=== PATIENT | female | born 1975 | race Caucasian/White ===

== ENCOUNTER 2017-06-26 17:04 | Emergency (ER) | payer BC ==
[2017-06-26 18:10] LABS: ADD MAN DIFF? NO
[2017-06-26] MEDS: IV NORMAL SALINE 1000ML BAG 1,000 ML IV (18:10)
[2017-06-26] MEDS: ONDANSETRON PF 4 MG/2 ML VIAL. IV (18:11)
[2017-06-26] MEDS: KETOROLAC 30 MG/ML INJ. IV (18:11)
[2017-06-26 18:14] LABS: BASO % 1 % (0-3); EOS % 0 % (0-3); HEMATOCRIT 36.3 % (36.0-47.0); HEMOGLOBIN 12.9 g/dL (12.0-15.5); LYMPH # 1.5 x10^3/uL (1.0-4.8); LYMPH % 21 % (24-48); MEAN CORPUSCULAR HEMOGLOBIN 34 pg (25-35); MEAN CORPUSCULAR HGB CONC 36 g/dL (31-37); MEAN CORPUSCULAR VOLUME 96 fL (79-100); MONO # 0.7 x10^3/uL (0.0-1.1); MONO % 9 % (0-9); NEUT # 5.1 x10^3uL (1.8-7.7); NEUT % 69 % (31-73); PLATELET COUNT 148 x10^3/uL (140-400); RED BLOOD COUNT 3.77 x10^6/uL (3.50-5.40); RED CELL DISTRIBUTION WIDTH 15.2 % (11.5-14.5); WHITE BLOOD COUNT 7.4 x10^3/uL (4.0-11.0)
[2017-06-26 18:34] LABS: ALBUMIN 3.7 g/dL (3.4-5.0); ALBUMIN/GLOBULIN RATIO 0.9 (1.0-1.7); ALK PHOS 99 U/L (46-116); ALT (SGPT) 75 U/L (14-59); ANION GAP 12 (6-14); AST (SGOT) 94 U/L (15-37); BLOOD UREA NITROGEN 11 mg/dL (7-20); BUN/CREATININE RATIO 16 (6-20); CALCIUM 8.5 mg/dL (8.5-10.1); CARBON DIOXIDE 29 mmol/L (21-32); CHLORIDE 98 mmol/L (98-107); CREATININE 0.7 mg/dL (0.6-1.0); GFR 92.2; GLUCOSE 97 mg/dL (70-99); LIPASE 258 U/L (73-393); SODIUM 139 mmol/L (136-145); TOTAL BILIRUBIN 0.6 mg/dL (0.2-1.0); TOTAL PROTEIN 7.9 g/dL (6.4-8.2)
[2017-06-26 18:39] LABS: ETHANOL 374 mg/dL (0-10)
[2017-06-26 18:40] LABS: POTASSIUM 2.9 mmol/L (3.5-5.1)
[2017-06-26 20:14] LABS: BILIRUBIN,URINE NEGATIVE (NEG); CLARITY,URINE CLEAR; COLOR,URINE YELLOW; GLUCOSE,URINE NEGATIVE (NEG); NITRITE,URINE NEGATIVE (NEG); PROTEIN,URINE NEGATIVE (NEG-TRACE)
[2017-06-26 20:19] LABS: BARBITURATES NEG (NEG); BENZODIAZEPINES NEG (NEG); CANNABINOIDS NEG (NEG); COCAINE NEG (NEG); METHADONE NEG (NEG); OPIATES NEG (NEG); PHENCYCLIDINE NEG (NEG)
[2017-06-26 20:21] LABS: AMPHETAMINE/METHAMPHETAMINE NEG (NEG); BACTERIA,URINE FEW /HPF (0-FEW); ETHANOL, URINE POS (NEG); SQUAMOUS EPITHELIAL CELL,UR MANY /LPF; WBC,URINE OCC /HPF (0-4)
[2017-06-26 20:22] LABS: HYALINE CASTS, URINE FEW /HPF
[2017-06-26] MEDS: POTASSIUM CHLORIDE 20 MEQ TABLET.ER. PO (20:48)
== END 2017-06-26 20:58 | disposition home or self-care (01) ==
LOC: ER 17:04
DX: R10.11 Right upper quadrant pain (principal); R10.13 Epigastric pain; R10.30 Lower abdominal pain, unspecified; E87.6 Hypokalemia; F10.10 Alcohol abuse, uncomplicated; R11.0 Nausea; N93.9 Abnormal uterine and vaginal bleeding, unspecified; I10 Essential (primary) hypertension; Y90.8 Blood alcohol level of 240 mg/100 ml or more
CPT/HCPCS: 36415; 76705; 76856; 80053; 80307; 81001; 83690; 85025; 87086; 96361; 96374; 96375; 99285-25; G0480; J1885; J2405; J7030

== ENCOUNTER 2018-09-23 18:22 | Emergency (ER) | payer SELFPAY ==
[~2018-09-23] VITALS: Ht 160 cm; Wt 68.0 kg
[~2018-09-23 18:22] MED LIST: POTA20TA82 PO
[2018-09-23 19:02] LABS: BASO % 0 % (0-3); EOS % 0 % (0-3); HEMATOCRIT 43.3 % (36.0-47.0); HEMOGLOBIN 15.4 g/dL (12.0-15.5); LYMPH # 1.8 x10^3/uL (1.0-4.8); LYMPH % 21 % (24-48); MEAN CORPUSCULAR HEMOGLOBIN 32 pg (25-35); MEAN CORPUSCULAR HGB CONC 36 g/dL (31-37); MEAN CORPUSCULAR VOLUME 89 fL (79-100); MONO # 0.5 x10^3/uL (0.0-1.1); MONO % 6 % (0-9); NEUT # 6.1 x10^3uL (1.8-7.7); NEUT % 72 % (31-73); PLATELET COUNT 127 x10^3/uL (140-400); RED BLOOD COUNT 4.88 x10^6/uL (3.50-5.40); RED CELL DISTRIBUTION WIDTH 14.4 % (11.5-14.5); WHITE BLOOD COUNT 8.4 x10^3/uL (4.0-11.0)
[2018-09-23 19:15] VITALS: BP 138/92
[2018-09-23 19:20] LABS: CALCIUM 8.7 mg/dL (8.5-10.1); CREATININE 0.5 mg/dL (0.6-1.0); GFR 135.3; POTASSIUM 3.5 mmol/L (3.5-5.1)
--- NOTE | 2018-09-23 19:20 | PHYS DOC ---
Past Medical History Past Medical History: Hypertension Past Surgical History: No Surgical History Alcohol Use: Heavy Drug Use: None Adult General Chief Complaint Chief Complaint: SUICDAL IDEATION HPI HPI Patient is a 42 year old female who presents via EMS for suicidal ideations. Per EMS report patient had significant EtOH intake today and made suicidal statements to neighborhood expressed concerns of the patient is suicidal. 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 On my evaluation patient is obviously acutely intoxicated. She has a mildly unsteady gait with some mild slurred speech. She has grossly dilated pupils that are sluggishly responsive to light. She was initially agitated and stating that she was going home and recanting SI statements. Patient does report that her spouse 2 days ago. Given acute intoxicated state and previous SI statements just 5 minutes prior to my evaluation patient will be UNTIL she is clinically sober and able to participate in a conversation with the PAT team. She was not a willing historian on my evaluation. Review of Systems Review of Systems She was not cooperative for ROS evaluation. Allergies Allergies Allergies Coded Allergies Type Severity Reaction Last Updated Verified No Known Drug Allergies 06/26/17 No Physical Exam Physical Exam Constitutional: Well developed, well nourished, appears stated age, slightly unsteady gait, slightly slurred speech, appears acutely intoxicated HENT: Normocephalic, atraumatic, Eyes: Pupils are approximately 6-7 mm was slightly sluggish reaction to light. She has spontaneous full ocular muscle use but does not cooperate for detailed exam. Neck: no stridor. Trachea midline[] Cardiovascular:Heart rate regular rhythm, no murmur [] Lungs & Thorax: Bilateral breath sounds clear to auscultation [] Abdomen: Bowel sounds normal, soft, no tenderness, no masses, no pulsatile masses. [] Skin: Warm, dry, no erythema, no rash, no excessive bruising to extremities or torso.. [] Back: No tenderness, no CVA tenderness. [] Extremities: No obvious deformities to extremities. Moves all extremities spontaneously. Slightly unsteady gait. Neurologic: Alert and oriented X 2, moves all 4 extremities spontaneously, uncooperative for full neuro exam, slightly slurred speech varies with emotional lability, ambulates though slightly antalgic. Psychologic: Tearful, yelling, intermittently combative, intermittently suicidal. Current Patient Data Vital Signs Vital Signs Date Time Temp Pulse Resp B/P (MAP) Pulse Ox O2 Delivery O2 Flow Rate FiO2 09/23/18 19:15 98.6 20 138/92 (107) 95 Room Air 98.6 09/23/18 18:22 106 Lab Values Laboratory Tests Test 09/23/18 18:35 09/23/18 19:30 09/23/18 19:38 White Blood Count 8.4 x10^3/uL (4.0-11.0) Red Blood Count 4.88 x10^6/uL (3.50-5.40) Hemoglobin 15.4 g/dL (12.0-15.5) Hematocrit 43.3 % (36.0-47.0) Mean Corpuscular Volume 89 fL (79-100) Mean Corpuscular Hemoglobin 32 pg (25-35) Mean Corpuscular Hemoglobin Concent 36 g/dL (31-37) Red Cell Distribution Width 14.4 % (11.5-14.5) Platelet Count 127 x10^3/uL (140-400) L Neutrophils (%) (Auto) 72 % (31-73) Lymphocytes (%) (Auto) 21 % (24-48) L Monocytes (%) (Auto) 6 % (0-9) Eosinophils (%) (Auto) 0 % (0-3) Basophils (%) (Auto) 0 % (0-3) Neutrophils # (Auto) 6.1 x10^3uL (1.8-7.7) Lymphocytes # (Auto) 1.8 x10^3/uL (1.0-4.8) Monocytes # (Auto) 0.5 x10^3/uL (0.0-1.1) Eosinophils # (Auto) 0.0 x10^3/uL (0.0-0.7) Basophils # (Auto) 0.0 x10^3/uL (0.0-0.2) Sodium Level 145 mmol/L (136-145) Potassium Level 3.5 mmol/L (3.5-5.1) Chloride Level 107 mmol/L (98-107) Carbon Dioxide Level 20 mmol/L (21-32) L Anion Gap 18 (6-14) H Blood Urea Nitrogen 6 mg/dL (7-20) L Creatinine 0.5 mg/dL (0.6-1.0) L Estimated GFR (Cockcroft-Gault) 135.3 BUN/Creatinine Ratio 12 (6-20) Glucose Level 113 mg/dL (70-99) H Calcium Level 8.7 mg/dL (8.5-10.1) Total Bilirubin 1.0 mg/dL (0.2-1.0) Aspartate Amino Transferase (AST) 59 U/L (15-37) H Alanine Aminotransferase (ALT) 50 U/L (14-59) Alkaline Phosphatase 143 U/L (46-116) H Total Protein 8.7 g/dL (6.4-8.2) H Albumin 4.6 g/dL (3.4-5.0) Albumin/Globulin Ratio 1.1 (1.0-1.7) Salicylates Level 3.7 mg/dL (2.8-20.0) Salicylate Last Dose Date Salicylate Last Dose Time Acetaminophen Level < 2 mcg/ml (10-30) L Acetaminophen Last Dose Date Acetaminophen Last Dose Time Ethyl Alcohol Level 395 mg/dL (0-10) H Urine Opiates Screen Neg (NEG) Urine Methadone Screen Neg (NEG) Urine Barbiturates Neg (NEG) Urine Phencyclidine Screen Neg (NEG) Urine Amphetamine/Methamphetamine Neg (NEG) Urine Benzodiazepines Screen Neg (NEG) Urine Cocaine Screen Neg (NEG) Urine Cannabinoids Screen Neg (NEG) Urine Ethyl Alcohol Pos (NEG) POC Urine HCG, Qualitative Hcg negative (Negative) Laboratory Tests 09/23/18 18:35 Laboratory Tests 09/23/18 18:35 EKG EKG [] Radiology/Procedures Radiology/Procedures [] Course & Med Decision Making Course & Med Decision Making Pertinent Labs and Imaging studies reviewed. (See chart for details) []2017: Patient D escalated quickly and resting comfortably while in the ER. She was evaluated by Isabell with the PAT team. Isabell felt that the patient had a fully engaged and productive conversation with her. Patient does have history of alcohol abuse up until a few days ago had been sober for greater than 200 days. Patient is establish with the Alcoholics Anonymous program. Patient denied any SI to this area. She did report increased depressed feelings related to recent of spouse. She is clinically sober on my repeat evaluation. She has cleared speech and a steady gait. Isabell has provided a safe discharge plan and patient's dad is coming to pick her up and she will stay at the father's house. Isabell spoke directly with the patient's dad. I discussed the labs with patient. Discussed elevated liver function tests consistent with history of alcohol abuse advised need for repeat in approximately one month. Patient was encouraged to attend an Alcoholics Anonymous meeting tomorrow. ER return precautions given. Patient verbalized understanding. All questions answered. Ramsey Disclaimer Ramsey Disclaimer This electronic medical record was generated, in whole or in part, using a voice recognition dictation system. Departure Departure Impression: Primary Impression: Acute alcohol intoxication Additional Impressions: Anxiety Depression Suicidal ideation Disposition: 01 HOME, SELF-CARE Referrals: ZAINAB BLACKWELL APRN (PCP) Patient Instructions: Alcohol Problems Additional Instructions: Thank you for coming to [facility]. Please read the attached handouts. Some of your liver enzymes were elevated on your ER evaluation. These will need to be repeated in approximately one month. GO TO AN AA MEETING [place]. Please try to decrease your alcohol intake. Follow up with the resources provided by Isabell with PAT team. Please follow-up with your primary care physician. Return to the ER if your symptoms worsen or you have any other concerns. Problem Qualifiers PEPPER DAS DO Sep 23, 2018 19:19
[2018-09-23 19:26] LABS: ALBUMIN 4.6 g/dL (3.4-5.0); ALBUMIN/GLOBULIN RATIO 1.1 (1.0-1.7); TOTAL PROTEIN 8.7 g/dL (6.4-8.2)
[2018-09-23 19:42] LABS: ACETAMIN < 2 mcg/ml (10-30); ETHANOL 395 mg/dL (0-10); SALIC 3.7 mg/dL (2.8-20.0)
[2018-09-23 19:58] LABS: BARBITURATES NEG (NEG); BENZODIAZEPINES NEG (NEG); CANNABINOIDS NEG (NEG); COCAINE NEG (NEG); METHADONE NEG (NEG); OPIATES NEG (NEG); PHENCYCLIDINE NEG (NEG)
[2018-09-23 20:00] LABS: AMPHETAMINE/METHAMPHETAMINE NEG (NEG)
[2018-09-23] MEDS ORDERED: BUSP30TA PO (23:45)
== END 2018-09-23 20:36 | disposition home or self-care (01) ==
LOC: ER 18:22
DX: F10.229 Alcohol dependence with intoxication, unspecified (principal); Y90.8 Blood alcohol level of 240 mg/100 ml or more; F32.9 Major depressive disorder, single episode, unspecified; F41.9 Anxiety disorder, unspecified; R45.851 Suicidal ideations; R47.81 Slurred speech; R45.1 Restlessness and agitation; R79.89 Other specified abnormal findings of blood chemistry; I10 Essential (primary) hypertension
CPT/HCPCS: 36415; 80053; 80307; 80329; 81025; 85025; 99284; G0480

== ENCOUNTER 2018-09-23 23:20 | Emergency (ER) | payer SELFPAY ==
[~2018-09-23] VITALS: Ht 170.2 cm; Wt 68.0 kg
[2018-09-23 23:21] VITALS: BP 182/106
--- NOTE | 2018-09-23 23:36 | PHYS DOC ---
Past Medical History Past Medical History: Hypertension Past Surgical History: No Surgical History Alcohol Use: Heavy Drug Use: None Adult General Chief Complaint Chief Complaint: ANXIETY/PANIC ATTACK HPI HPI Patient is a 42 year old presents to the ER for evaluation exam he. Patient seen here earlier by myself for acute alcohol intoxication/suicidal/anxiety. Patient was seen by Isabell with the PAT team and cleared for safe discharge. Patient reports increased anxiety while at home after discharge. States that she took her last Xanax, ?0.5mg. Denies any SI. Feels safe at Dad's house. Also states that she is out of her home buspirone 30mgQD for the past 2 days. Denies any current chest pain, palpitations, dizziness, withdrawal seizure, nausea, vomiting Review of Systems Review of Systems Constitutional: Denies fever or chills [] HENT: Denies nasal congestion or sore throat [] Respiratory: Denies cough or shortness of breath [] Cardiovascular: No chest pain, no palpitations GI: Denies abdominal pain, nausea, vomiting, bloody stools or diarrhea [] : Denies dysuria or hematuria [] Musculoskeletal: Denies back pain or joint pain [] Integument: Denies rash or skin lesions [] Neurologic: Denies headache, focal weakness or sensory changes [] Endocrine: Denies polyuria or polydipsia [] All other systems were reviewed and found to be within normal limits, except as documented in this note. Allergies Allergies Allergies Coded Allergies Type Severity Reaction Last Updated Verified No Known Drug Allergies 06/26/17 No Physical Exam Physical Exam Constitutional: Well developed, well nourished, no acute distress, HENT: Normocephalic, atraumatic, Eyes: PERRLA, EOMI, Neck: Normal range of motion, no tenderness, supple, no stridor. [] Cardiovascular:Heart rate regular rhythm, no murmur [] Lungs & Thorax: Bilateral breath sounds clear to auscultation [] Abdomen: Bowel sounds normal, soft, no tenderness, no masses, no pulsatile masses. [] Skin: Warm, dry, no erythema, no rash. [] Back: No tenderness, no CVA tenderness. [] Extremities: No tenderness, no cyanosis, no clubbing, ROM intact, no edema. [] Neurologic: Alert and oriented X 3, no focal deficits noted, clear speech, steady gait. [] Psychologic: flat affect. no SI, no hallucinations. [] EKG EKG [] Radiology/Procedures Radiology/Procedures [] Course & Med Decision Making Course & Med Decision Making Pertinent Labs and Imaging studies reviewed. (See chart for details) 2335: She took last dose of Xanax at home and has been out of her BuSpar for the past few days. Patient here reporting increased anxiety. Patient was seen here earlier tonight with a significantly elevated alcohol level. Patient starting having benzodiazepine at home. Discussed that it is inappropriate to after the benzodiazepines in the state of acute alcohol intoxication. Advised potential ability to give patient accepted to an acute rehabilitation/[facility] facility. Patient declined. Unclear why patient is refusing. Advised that we'll be able to provide provide support. Patient continued declined the services. She is adamant that she is not suicidal and safe at her dad's house. Will provide a prescription for buspirone. Advised patient to follow-up closely with [facility] i.e. tomorrow. Patient verbalized understanding and does state that she will go there tomorrow. ER return precautions given. Patient verbalized understanding. All questions answered. Ramsey Disclaimer Ramsey Disclaimer This electronic medical record was generated, in whole or in part, using a voice recognition dictation system. Departure Departure Impression: Primary Impression: Anxiety Additional Impression: Acute alcohol intoxication Disposition: 01 HOME, SELF-CARE Condition: STABLE Referrals: ZAINAB BLACKWELL APRN (PCP) Patient Instructions: Anxiety and Panic Attacks Additional Instructions: Thank you for coming to [facility]. Please read the attached handouts. Please follow-up with your primary care physician. GO TO [facility]OM[facility]. Return to the ER if your symptoms worsen or you have any other concerns. Scripts Buspirone Hcl (BUSPIRONE HCL) 30 Mg Tablet 1 TAB PO DAILY, #30 TAB Prov: PEPPER DAS DO 09/23/18 Problem Qualifiers PEPPER DAS DO Sep 23, 2018 23:35
[2018-09-23] MEDS ORDERED: BUSP30TA PO (23:45)
== END 2018-09-24 00:15 | disposition home or self-care (01) ==
LOC: ER 23:20
DX: F41.9 Anxiety disorder, unspecified (principal); F10.229 Alcohol dependence with intoxication, unspecified; Y90.9 Presence of alcohol in blood, level not specified; I10 Essential (primary) hypertension
CPT/HCPCS: 99284